=== PATIENT | female | born 1960 | race Caucasian/White ===

== ENCOUNTER 2016-10-16 10:09 | Inpatient (IN) | payer OTHER ==
[2016-10-15 14:19] VITALS: BMI 34.5
[~2016-10-16] VITALS: Ht 170.2 cm; Wt 101.0 kg
[2016-10-16] VITALS (17 sets, daily range): BP systolic 114–166; BP diastolic 62–112; PULSE 75–88; RESP 11–25; Ht 170.2 cm; Wt 101.0 kg
[2016-10-16] MEDS: CEFAZOLIN 1 GM/50 ML (PMX) 50 ML IVPB SCH (01:00)
[~2016-10-16 10:09] MED LIST: CEFAZOLIN 1 GM INJ ONE
[2016-10-16] MEDS: D5-NS + KCL 20 MEQ 1,000 ML IV SCH ×2 (10:30→20:30)
[2016-10-16] MEDS ORDERED: CEFAZOLIN 2 GM/50 ML (PMX) 50 ML IVPB SCH (10:30)
[2016-10-16] MEDS ORDERED: Metronidazole 500 MG in NS 100 ML IVPB ONE (10:30)
[2016-10-16] MEDS ORDERED: VASOPRESSIN 20 UNITS INJ ONE (11:15)
[2016-10-16] MEDS ORDERED: THROMBIN 5000 UNIT VIAL ONE ×2 (11:15→17:52)
[2016-10-16] MEDS ORDERED: METHYLENE BLUE 1% 10 ML INJ ONE (11:16)
[2016-10-16] MEDS ORDERED: ATEN50TA PO (11:49)
[2016-10-16] MEDS ORDERED: MTF1000T PO (11:49)
[2016-10-16] MEDS ORDERED: GLIP-95 PO (11:51)
[2016-10-16] MEDS ORDERED: FENTAnyl 50 MCG/ML VIAL ONE ×2 (13:24→15:38)
[2016-10-16] MEDS ORDERED: MIDAZOLAM 1 MG/ML 2 ML INJ ONE (13:24)
[2016-10-16] MEDS ORDERED: ROCURONIUM 50 MG INJ ONE (13:24)
[2016-10-16] MEDS ORDERED: PROPOFOL 20 ML ONE (13:24)
[2016-10-16] MEDS ORDERED: LIDOCAINE 1% (MDV) 20 ML INJ ONE (13:24)
--- NOTE | 2016-10-16 13:30 | HPN ---
Date/Time of Note Date/Time of Note DATE: 10/16/16 TIME: 13:30 Interval H&P Admission Note Pt. seen H&P reviewed: No system changes CEE BARRERA MD Oct 16, 2016 13:30
[2016-10-16] MEDS ORDERED: METOCLOPRAMIDE 10 MG INJ ONE (14:33)
[2016-10-16] MEDS ORDERED: FAMOTIDINE 20 MG INJ ONE (14:33)
[2016-10-16] MEDS ORDERED: ONDANSETRON 4 MG INJ ONE (14:33)
[2016-10-16] MEDS ORDERED: CEFAZOLIN 1 GM in SOD CHLORIDE 0.9% 100 ML IVPB SCH (15:00)
[2016-10-16] MEDS ORDERED: ROPIVACAINE 0.2% 20 ML VIAL ONE ×3 (15:31→18:35)
[2016-10-16] MEDS ORDERED: LABETALOL HCL 20MG INJ ONE (15:48)
[2016-10-16] MEDS ORDERED: morphine SULFATE/PF (10 MG/10 ML) INJ ONE (18:05)
[2016-10-16] MEDS ORDERED: SUGAMMADEX SODIUM 200 MG/2 ML VIAL IV ONE (18:24)
--- NOTE | 2016-10-16 18:44 | OPR ---
Date/Time of Note Date/Time of Note DATE: 10/16/16 TIME: 18:43 Operative Report Free Text/Dictation 1 OPERATIVE REPORT [facility] Name: Ruth Corley Date: 10/16/16 Preoperative Diagnosis: 1-Endometrial cancer grade 2-3 Postoperative Diagnosis: 1-Endometrial cancer with final pathology pending 2- Ureteral stricture/ IP-ligament hypervascularity Procedures: 1- Total laparoscopic hysterectomy with bilateral salpingoophorectomy 2- Bilateral ureteral dissection with repositioning 3- Laparoscopic pelvic and aortic lymph node dissection 4- Retroperitoneal uterine artery ligation adjacent to hypogastric artery Surgeon: Dr. Aguilar Flat Optical Element Maker: Dr. Herrera Anaesthesia: General with regional Indications for Procedure: This 56 year old patient had a grade 2-3 endometrial cancer without evidence of metastatic disease preoperatively and after discussions of options with risks and benefits it was determined that a laparoscopic hysterectomy with bilateral salpingoophorectomy and pelvic/aortic lymph node dissection would be completed for the purposes of treatment and possibly planning additional adjuvant therapy. The pelvic and LND was performed in lieu of final grading not being equivalent to preoperative D&C grade 18-25% of the time and frozen section not being more that 80% reliable in determining grade and depth of invasion; therefore complete staging is performed to determine postoperative management unless there is a significant contraindication. Name: Ruth Corley Intraoperative Findings and Summary of Procedure: After placing the Trocars and exploration we noted an enlarged globular uterus with hypervascularity with significant adhesions of the adnexia to the sidewalls. The TLH/BSO was then performed without incident but required a ureteral dissection due to anatomic issues of the adnexia adherent to the sidewalls and uterine enlargement due to possible invasion and hypervascularity with retroperitoneal uterine artery ligation adjacent to hypogastric artery for required hemostasis, with the laparoscopic LND being subsequently performed with a finding of grossly negative nodes pathology pending. The patient will stay a minimum of one night to observe for recovery of from anesthesia and confirm stable hemoglobin and hematocrit with the necessity of confirmation of some GI recovery and probably need an addition night as well. Findings and Procedure: After being prepped and draped in the usual manner an EEA sizer and pneumo- occluder was inserted vaginally. A 5-millimeter trocar was then placed cephlad to the umbilicus without incident. Subsequently, we insufflated and placed two 12- millimeter trocars laterally and a 12-millimeter trocar suprapubically, as well as an additional 12-mm trocar further cephlad to the umbilicus. At this time multiple pelvic adhesions were lysed with sharp dissection and the Omni if not adjacent to serosa. Subsequently we explored and noted an enlarged globular uterus with hypervascularity with adnexia adherent to the sidewalls due to apparent inflammation and old scar tissue. Initially the right round ligament was cauterized and transected with the Thunderbeat and the retroperitoneal space further opened parallel to the IP ligament an laterally with the same devise. The right ureter was identified and due to the aforementioned distortion from adherent adnexia was dissected laterally with the Omni and the endo-dissector. After lateralizing the ureter the uterine artery was identified and clipped adjacent to the hypogastric artery due to the uterine enlargement and hypervascularity lateral to the ureter. Hence, a space was developed the broad ligament and the right IP ligament [facility]er[facility] and transected with a Thunderbeat after which the uterus was retracted medially and the bladder flap was partly developed with the Gyrus bipolar cutting forceps and the Omni. We then used a 10-mm ratcheted endo- grasper, placed through the 12-mm suprapubic trocar to manipulate the uterus and with the EEA sizer uterus was retracted and left round ligament was cauterized and transected with the Thunderbeat and the retroperitoneal space further opened parallel to the IP ligament an laterally with the same devise. The left ureter was identified and due to the aforementioned distortion was dissected laterally with the Omni and the endo-dissector as done contralaterally. After lateralizing the ureter the uterine artery was identified and clipped adjacent to the hypogastric artery due to the uterine enlargement and hypervascularity lateral to the ureter. Hence, a space was developed in the broad ligament and the left IP ligament was cauterized and transected with a Thunderbeat after which the uterus was retracted medially, allowing development or the bladder flap uneventfully with a Thunderbeat and blunt dissection. Subsequently, the right uterine artery was transected with a Thunderbeat perpendicular to the distal lower uterine segment and the Cardinal ligament and utero-sacral ligament were both transected with an Omni and Thunderbeat parallel to the lower uterine segment and cervix. An identical series of steps were taken on the left side. The anterior and posterior colpotomies were accomplished with a Thunderbeat anteriorly and posteriorly, and continued around the sides as the specimen was removed through the vagina uneventfully. The vagina was closed with interrupted 0 Vicryl suture and continuous 2-0 v-lock suture. At this time the frozen section returned grade uncertain with uncertain depth of invasion and the pelvic and aortic LND were completed after confirming hemostasis. Initially a fan retractor was used for exposure and secured to the Lacho arm and all lymph node tissue adjacent to the right external iliac artery and vein, hypogastric artery and vein, as well as obturator fossa were removed with sharp and blunt dissection, using the Thunderbeat or Gyrus bipolar Omni for hemostasis and lymphostasis. The abelardo tissue was grasped and subsequently placed under tractions with the Omni and the Thunderbeat then being used for the hemostasis and lymphostasis in the process of [facility]. The dissection was continued to include abelardo tissue adjacent to the common iliac vessels. The obturator nerve was identified and all adjacent abelardo tissue removed with blunt dissection, with the Thunderbeat or Gyrus bipolar Omni used for lymphostasis and hemostasis as needed. The fan retractors were adjusted in that a suprapubically placed fan retracted the broad ligament and ureter with ileum while the right lateral trocar was used for a fan to retract the cecum and ascending colon allowing any abelardo tissue adjacent to the vena cava, as well as aorto-caval nodes to be removed using identical technique. [employer] Sales [employer] vessels were addressed with the Thunderbeat or Gyrus bipolar Omni. At this time we placed the fan retractors for contralateral exposure. Subsequently, all lymph node tissue adjacent to the left external iliac artery and vein, hypogastric artery and vein, as well as obturator fossa were removed with sharp and blunt dissection, the Thunderbeat or Gyrus bipolar Omni for hemostasis and lymphostasis, with a technique identical to the right side. The dissection was continued to include abelardo tissue adjacent to the common iliac vessels. Subsequently, the fan retractors were adjusted and any abelardo tissue adjacent to the aorta were dissected using similar technique. After irrigating and assuring hemostasis the 12 millimeter trocars were removed and the fascia was closed with 0-vicryl using an endo- close devise. The gas was removed and the skin of all sites then closed with subcutaneous 3-0 Vicryl suture and interrupted 6-0 Monocryl suture. The EBL was 100cc and the patient tolerated the procedure well and left the OR in good condition. Jose Aguilar M.D. JOSE AGUILAR MD Oct 16, 2016 18:44
[2016-10-16] MEDS ORDERED: HYDROmorphONE (0.2 MG/ML) 10ML SYG IV ONE (18:48)
[2016-10-16] MEDS ORDERED: LABETALOL HCL 20MG INJ IV PRN (19:00)
[2016-10-16] MEDS ORDERED: METOCLOPRAMIDE 10 MG INJ IV PRN (19:00)
[2016-10-16] MEDS ORDERED: DIPHENHYDRAMINE 50 MG INJ IV PRN (19:00)
[2016-10-16] MEDS ORDERED: NALOXONE (0.4 MG/ML) INJ IV PRN (19:00)
[2016-10-16] MEDS ORDERED: ONDANSETRON 4 MG INJ IV PRN ×2 (19:00)
[2016-10-16] MEDS ORDERED: HYDROmorphONE 1 MG/ML SYG IV PRN ×2 (19:00)
[2016-10-16] MEDS ORDERED: MEPERIDINE 25 MG INJ IV PRN (19:00)
[2016-10-16] MEDS ORDERED: hydrALAzine 20 MG INJ IV PRN (19:00)
[2016-10-16] MEDS ORDERED: PROCHLORPERAZINE 10 MG INJ IV PRN (19:00)
[2016-10-16] MEDS ORDERED: NALBUPHINE HCL (10 MG/1 ML) INJ IV PRN (19:00)
[2016-10-16] MEDS: ONDANSETRON 4 MG INJ IV PRN (19:10)
[2016-10-16] MEDS: HYDROmorphONE (0.2 MG/ML) 10ML SYG IV PRN ×4 (19:10→19:52)
[2016-10-16] MEDS ORDERED: GLUCAGON 1 MG INJ IM PRN ×2 (19:30→20:00)
[2016-10-16] MEDS ORDERED: GLUCOSE GEL 15 GRAM TUBE PO PRN ×4 (19:30→20:00)
[2016-10-16] MEDS ORDERED: GLUCOSE GEL 15 GRAM TUBE BUCCAL PRN ×2 (19:30→20:00)
[2016-10-16] MEDS ORDERED: DEXTROSE 50% 50 ML SYRINGE IV PRN ×4 (19:30→20:00)
[2016-10-16] MEDS: metFORMIN 500 MG TAB PO SCH (21:00)
[2016-10-16] MEDS: morphine 2 MG INJ IV PRN (21:03)
[2016-10-16] MEDS: FAMOTIDINE 20 MG INJ IV SCH (21:50)
--- NOTE | 2016-10-16 21:56 | HP ---
DATE OF ADMISSION: 10/16/2016 HISTORY OF PRESENT ILLNESS: The patient is a 56-year-old, White female, with a grade 2-3 endometrial cancer without evidence of metastatic disease. The patient also with history of diabetes mellitus, hypertension, and obesity. The patient was evaluated by Dr. Aguilar, at the patient was brought to the hospital and underwent a total laparoscopic hysterectomy with bilateral salpingo-oophorectomy, bilateral urethral dissection with repositioning, laparoscopic pelvic and aortic lymph node dissection, and retroperitoneal uterine artery ligation adjacent to the hypogastric artery. Postoperatively the patient experienced significant pain and patient is admitted for further evaluation and management. PAST MEDICAL HISTORY: Positive for obesity, diabetes and hypertension. PAST SURGICAL HISTORY: Status post appendectomy and status post cholecystectomy. FAMILY HISTORY: Positive for ovarian cancer in patient's mother at the age at the age of 48. SOCIAL HISTORY: Patient lives at home with her family. Patient denies any tobacco use. The patient denies any illicit drug use. Patient uses alcohol occasionally and very rarely. ALLERGIES: NO KNOWN ALLERGIES. MEDICATIONS: Atenolol and metformin. REVIEW OF SYSTEMS: Twelve point review of systems is negative unless what is mentioned in HPI. PHYSICAL EXAMINATION: GENERAL: Well developed, obese female. Currently is awake, alert. VITAL SIGNS: Temperature is 97.8, pulse is 84, blood pressure 140/81, respiratory rate 16, oxygen saturation 98 percent on 2 L nasal cannula. HEENT: Head is atraumatic, normocephalic. Pupils equal, round, reactive to light and accommodation. Oral mucosa is pink and moist. NECK: Supple. No cervical lymphadenopathy. No thyromegaly. CHEST: Lungs clear bilaterally. There is no rhonchi, wheezes, or rales noted. CARDIOVASCULAR: Normal S1, S2. No murmurs, gallops, clicks, or rubs noted. ABDOMEN: Round, soft, status post surgery. GENITOURINARY: Patient has a Ellison catheter with yellow urine. EXTREMITIES: No edema, clubbing, or cyanosis. SKIN: Patient has skin discoloration over the face and upper extremities consistent with vitiligo. NEUROLOGICAL: Patient is awake, alert, and oriented times 3. No focal deficits noted. Motor strength, 5/5 in all extremities. LABORATORY DATA: Prior to surgery, white blood cells 8.8, hemoglobin 15, hematocrit 45, and platelets 212. Current BMP, sodium 141, potassium 4.4, BUN is 10, creatinine 0.49, chloride 106, carbon dioxide 23, and calcium 9.5. Chest x-ray prior to surgery, heart is normal. Slight calcification aorta. The lungs and costophrenic angles are clear. Degenerative changes are noted in the spine without bridging osteophytes. Upper abdominal surgical clips are present. ASSESSMENT AND PLAN: 1. Endometrial cancer, status post total laparoscopic hysterectomy with bilateral salpingo-oophorectomy, bilateral ureteral dissection was repositioning. Continue morphine for pain and Zofran p.r.n. for nausea. Continue IV fluids. Advance diet per Surgery. Continue Ellison catheter and monitor urinary output. 2. Diabetes mellitus type 2. Continue metformin. We will monitor fingerstick, NovoLog, and sliding scale coverage, and adequate glycemic control. 3. Hypertension. We will resume patient's home antihypertensive medication. 4. Continue sequential compression devices for deep venous thrombosis prophylaxis and Pepcid for peptic ulcer disease prophylaxis. 5. Further recommendations based on clinical course. Plan of care discussed with Dr. Nelson. Dictated By: Melody Zayas NP /siva/jr /Document#: [id number]
[2016-10-16] MEDS: KETOROLAC 30 MG INJ IV PRN (22:08)
[2016-10-17] MEDS: POTASSIUM CHLORIDE 20 MEQ in LACTATED RINGER'S 1,000 ML IV SCH ×3 (00:04→14:24)
[2016-10-17] MEDS: metroNIDAZOLE 500 MG/NS (PMX) 100 ML IVPB SCH ×2 (00:04→08:12)
[2016-10-17] MEDS: INSULIN ASPART [NOVOLOG] 3 ML PEN SC SCH ×5 (00:11→21:00)
[2016-10-17] MEDS: CEFAZOLIN 1 GM/50 ML (PMX) 50 ML IVPB SCH ×2 (01:00→08:56)
[2016-10-17] MEDS: ACCU-CHEK XX SCH (02:00)
[2016-10-17] MEDS: morphine 2 MG INJ IV PRN (02:19)
[2016-10-17 05:30] LABS: INR 1.13; PROTIME 14.5 Sec (12.2-14.2); PT RATIO 1.1
[2016-10-17 07:00] VITALS: BP 127/71; RESP 20
[2016-10-17 07:36] LABS: BASOPHILS % 0.1 % (0.0-2.0); HEMATOCRIT 34.7 % (37.0-47.0); HEMOGLOBIN 12.4 g/dl (12.0-16.0); LYMPHOCYTES # 1.4 10^3/ul (0.8-2.9); LYMPHOCYTES % 13.9 % (15.0-51.0); MEAN CORPUSCULAR HEMOGLOBIN 28.6 pg (29.0-33.0); MEAN CORPUSCULAR HGB CONC 35.7 g/dl (32.0-37.0); MEAN CORPUSCULAR VOLUME 80.1 fl (82.0-101.0); MONOCYTE # 1.3 10^3/ul (0.3-0.9); MONOCYTES % 12.2 % (0.0-11.0); NEUTROPHILS % 73.5 % (39.0-77.0); PLATELET COUNT 203 10^3/UL (140-415); RED BLOOD COUNT 4.33 10^6/ul (4.20-5.40); RED CELL DISTRIBUTION WIDTH 12.9 % (11.5-14.5); WHITE BLOOD COUNT 10.3 10^3/ul (4.8-10.8)
[2016-10-17 08:41] LABS: CALCIUM 8.7 mg/dl (8.4-10.2); CREATININE 0.53 mg/dl (0.44-1.00); POTASSIUM 4.5 mmol/L (3.5-5.1)
[2016-10-17] MEDS: metFORMIN 500 MG TAB PO SCH ×2 (08:56→21:00)
[2016-10-17] MEDS: FAMOTIDINE 20 MG INJ IV SCH (08:56)
[2016-10-17] MEDS: ATENOLOL 50 MG TAB PO SCH (08:57)
--- NOTE | 2016-10-17 10:00 | PN ---
Date/Time of Note Date/Time of Note DATE: 10/17/16 TIME: 09:59 Assessment/Plan VTE Prophylaxis VTE Prophylaxis Intervention: other Lines/Catheters IV Catheter Type (from Nrsg): Saline Lock Urinary Cath still in place: Yes Reason Cath still needed: skin wounds contaminated by urine Assessment/Plan Chief Complaint/Hosp Course 1. Endometrial cancer, status post total laparoscopic hysterectomy with bilateral salpingo-oophorectomy, bilateral ureteral dissection was repositioning. Continue morphine for pain and Zofran p.r.n. for nausea. Continue IV fluids. Advance diet per Surgery. Continue Ellison catheter and monitor urinary output. 2. Diabetes mellitus type 2. Continue metformin. We will monitor fingerstick, NovoLog, and sliding scale coverage, and adequate glycemic control. 3. Hypertension. We will resume patient's home antihypertensive medication. 4. Continue sequential compression devices for deep venous thrombosis prophylaxis and Pepcid for peptic ulcer disease prophylaxis. Problems: Subjective 24 Hr Interval Summary Free Text/Dictation Patient doing well Exam/Review of Systems Vital Signs Vitals Vital Signs Date Time Temp Pulse Resp B/P Pulse Ox O2 Delivery O2 Flow Rate FiO2 10/17/16 07:00 98.5 77 20 127/71 97 10/16/16 21:30 Nasal Cannula 2.0 Intake and Output 10/16/16 10/16/16 10/17/16 15:00 23:00 07:00 Intake Total 3240 ml 1000 ml Output Total 790 ml 1200 ml Balance 2450 ml -200 ml Exam Constitutional: well developed Head: atraumatic, normocephalic Neck: supple Respiratory: clear to auscultation Cardiovascular: regular rate and rhythm Gastrointestinal: non-tender, soft Extremities: normal pulses Results Result Diagram: 10/17/16 0433 10/17/16 0433 Results 24 hrs Laboratory Tests Test 10/16/16 12:01 10/16/16 21:51 10/17/16 00:02 10/17/16 04:33 Bedside Glucose 169 222 H 233 H White Blood Count 10.3 Red Blood Count 4.33 Hemoglobin 12.4 Hematocrit 34.7 L Mean Corpuscular Volume 80.1 L Mean Corpuscular Hemoglobin 28.6 L Mean Corpuscular Hemoglobin Concent 35.7 Red Cell Distribution Width 12.9 Platelet Count 203 Mean Platelet Volume 11.0 H Neutrophils % 73.5 Lymphocytes % 13.9 L Monocytes % 12.2 H Eosinophils % 0.0 Basophils % 0.1 Nucleated Red Blood Cells % 0.0 Neutrophils # (Manual) 8 H Lymphocytes # 1.4 Monocytes # 1.3 H Eosinophils # 0.0 Basophils # 0.0 Nucleated Red Blood Cells # 0.0 Prothrombin Time 14.5 H Prothrombin Time Ratio 1.1 INR International Normalized Ratio 1.13 Sodium Level 143 Potassium Level 4.5 Chloride Level 104 Carbon Dioxide Level 27 Anion Gap 17 H Blood Urea Nitrogen 13 Creatinine 0.53 Glucose Level 193 Hemoglobin A1c 8.6 H Calcium Level 8.7 Test 10/17/16 04:51 10/17/16 08:37 Bedside Glucose 230 H 208 Medications Medications Current Medications Metronidazole (Flagyl 500 Mg (Pmx)) 100 ml @ 100 mls/hr Q8H IVPB Last administered on 10/17/16 08:12; Admin Dose 100 MLS/HR; Start 10/16/16 at 15:00 ; Stop 10/17/16 at 14:59 Morphine Sulfate (morphine) 2 mg Q2H PRN IV PAIN LEVEL 6-10 Last administered on 10/17/16 02:19; Admin Dose 2 MG; Start 10/16/16 at 15:00 Acetaminophen/ Hydrocodone Bitart ([place] (5/325)) 1 tab Q6H PRN PO PAIN LEVEL 6 -10; Start 10/16/16 at 15:00 Ondansetron HCl (Zofran Inj) 4 mg Q6H PRN IV NAUSEA AND/OR VOMITING Last administered on 10/16/16 19:10; Admin Dose 4 MG; Start 10/16/16 at 15:00 Famotidine 20 mg 20 mg Q12 IV Last administered on 10/17/16 08:56; Admin Dose 20 MG; Start 10/16/16 at 21:00 Potassium Chloride/Lactated Ringer's (KCl/Lr) 1,010 ml @ 100 mls/hr Q10H6M IV Last administered on 10/17/16 00:04; Admin Dose 100 MLS/HR; Start 10/16/16 at 14:32 Naloxone HCl (Narcan) 0.1 mg Q2M PRN IV FOR RESP RATE 8 OR LESS; Start at 19:00; Stop 10/17/16 at 18:59 Ketorolac Tromethamine (Toradol) 30 mg Q6H PRN IV PAIN Last administered on 22:08; Admin Dose 30 MG; Start 10/16/16 at 19:00; Stop 10/17/16 at 18:59 Hydromorphone HCl (Dilaudid) 0.2 mg Q3H PRN IV PAIN LEVEL 1-5; Start 10/16/16 at 19:00; Stop 10/17/16 at 18:59 Hydromorphone HCl (Dilaudid) 0.4 mg Q3H PRN IV PAIN LEVEL 6-10; Start 10/16/16 at 19:00; Stop 10/17/16 at 18:59 Nalbuphine HCl (Nubain) 5 mg ONCE PRN IV ITCHING; Start 10/16/16 at 19:00; Stop 10/17/16 at 18:59 Ondansetron HCl (Zofran Inj) 4 mg Q6H PRN IV NAUSEA AND/OR VOMITING Last administered on 10/17/16 00:03; Admin Dose 4 MG; Start 10/16/16 at 19:00; Stop 10/17/16 at 18:59 Atenolol (Tenormin) 50 mg DAILY PO Last administered on 10/17/16 08:57; Admin Dose 50 MG; Start 10/17/16 at 09:00 Metformin HCl (Glucophage) 1,000 mg BID PO Last administered on 10/17/16 08:56 ; Admin Dose 1,000 MG; Start 10/16/16 at 21:00 Miscellaneous Information 1 ea NOTE XX ; Start 10/16/16 at 19:30 Glucose (Glutose) 15 gm Q15M PRN PO DECREASED GLUCOSE; Start 10/16/16 at 19:30 Glucose (Glutose) 22.5 gm Q15M PRN PO DECREASED GLUCOSE; Start 10/16/16 at 19: 30 Dextrose (D50w Syringe) 25 ml Q15M PRN IV DECREASED GLUCOSE; Start 10/16/16 at 19:30 Dextrose (D50w Syringe) 50 ml Q15M PRN IV DECREASED GLUCOSE; Start 10/16/16 at 19:30 Glucagon (Glucagen) 1 mg Q15M PRN IM DECREASED GLUCOSE; Start 10/16/16 at 19:30 Glucose (Glutose) 15 gm Q15M PRN BUCCAL DECREASED GLUCOSE; Start 10/16/16 at 19 :30 Diagnostic Test (Pha) (Accu-Chek) 1 ea 02 XX ; Start 10/17/16 at 02:00 Miscellaneous Information 1 ea NOTE XX ; Start 10/16/16 at 20:00 Glucose (Glutose) 15 gm Q15M PRN PO DECREASED GLUCOSE; Start 10/16/16 at 20:00 Glucose (Glutose) 22.5 gm Q15M PRN PO DECREASED GLUCOSE; Start 10/16/16 at 20: 00 Dextrose (D50w Syringe) 25 ml Q15M PRN IV DECREASED GLUCOSE; Start 10/16/16 at 20:00 Dextrose (D50w Syringe) 50 ml Q15M PRN IV DECREASED GLUCOSE; Start 10/16/16 at 20:00 Glucagon (Glucagen) 1 mg Q15M PRN IM DECREASED GLUCOSE; Start 10/16/16 at 20:00 Glucose (Glutose) 15 gm Q15M PRN BUCCAL DECREASED GLUCOSE; Start 10/16/16 at 20 :00 CARSON VILLALPANDO Oct 17, 2016 10:00
[2016-10-17] MEDS: ACETAMINOPHEN 325 MG TAB PO PRN ×2 (11:54→18:04)
[2016-10-17 12:00] VITALS: BP 150/68; PULSE 68; RESP 18
[2016-10-17 14:00] VITALS: BP 135/69; RESP 20
--- NOTE | 2016-10-17 14:48 | PN ---
Date/Time of Note Date/Time of Note DATE: 10/17/16 TIME: 14:45 Assessment/Plan VTE Prophylaxis VTE Prophylaxis Intervention: SCD's Lines/Catheters IV Catheter Type (from Nrs): Saline Lock Urinary Cath still in place: Yes Reason Cath still needed: urinary retention Assessment/Plan Chief Complaint/Hosp Course endometrial cancer Problems: Assessment/Plan A- doing well other than N/V P- d/c MS and add Toradol Subjective 24 Hr Interval Summary Free Text/Dictation + flatus, minimally OOB and N/V apparently correlated with MS. Exam/Review of Systems Vital Signs Vitals Vital Signs Date Time Temp Pulse Resp B/P Pulse Ox O2 Delivery O2 Flow Rate FiO2 10/17/16 14:00 98.7 86 20 135/69 95 10/17/16 12:00 Nasal Cannula 2.0 Intake and Output 10/16/16 10/16/16 10/17/16 15:00 23:00 07:00 Intake Total 3240 ml 1000 ml Output Total 790 ml 1200 ml Balance 2450 ml -200 ml Exam Resp- clear CVS- NSR Abd- soft NT and clean Ext- nt no edema Results Result Diagram: 10/17/16 0433 10/17/16 0433 Results 24 hrs Laboratory Tests Test 10/16/16 21:51 10/17/16 00:02 10/17/16 04:33 10/17/16 04:51 Bedside Glucose 222 H 233 H 230 H White Blood Count 10.3 Red Blood Count 4.33 Hemoglobin 12.4 Hematocrit 34.7 L Mean Corpuscular Volume 80.1 L Mean Corpuscular Hemoglobin 28.6 L Mean Corpuscular Hemoglobin Concent 35.7 Red Cell Distribution Width 12.9 Platelet Count 203 Mean Platelet Volume 11.0 H Neutrophils % 73.5 Lymphocytes % 13.9 L Monocytes % 12.2 H Eosinophils % 0.0 Basophils % 0.1 Nucleated Red Blood Cells % 0.0 Neutrophils # (Manual) 8 H Lymphocytes # 1.4 Monocytes # 1.3 H Eosinophils # 0.0 Basophils # 0.0 Nucleated Red Blood Cells # 0.0 Prothrombin Time 14.5 H Prothrombin Time Ratio 1.1 INR International Normalized Ratio 1.13 Sodium Level 143 Potassium Level 4.5 Chloride Level 104 Carbon Dioxide Level 27 Anion Gap 17 H Blood Urea Nitrogen 13 Creatinine 0.53 Glucose Level 193 Hemoglobin A1c 8.6 H Calcium Level 8.7 Test 10/17/16 08:37 10/17/16 11:59 Bedside Glucose 208 177 Medications Medications Current Medications Metronidazole (Flagyl 500 Mg (Pmx)) 100 ml @ 100 mls/hr Q8H IVPB Last administered on 10/17/16 08:12; Admin Dose 100 MLS/HR; Start 10/16/16 at 15:00 ; Stop 10/17/16 at 14:59 Morphine Sulfate (morphine) 2 mg Q2H PRN IV PAIN LEVEL 6-10 Last administered on 10/17/16 02:19; Admin Dose 2 MG; Start 10/16/16 at 15:00 Acetaminophen/ Hydrocodone Bitart ([place] (5/325)) 1 tab Q6H PRN PO PAIN LEVEL 6 -10; Start 10/16/16 at 15:00 Ondansetron HCl 4 mg 4 mg Q6H PRN IV NAUSEA AND/OR VOMITING Last administered on 10/16/16 19:10; Admin Dose 4 MG; Start 10/16/16 at 15:00 Potassium Chloride/Lactated Ringer's (KCl/Lr) 1,010 ml @ 100 mls/hr Q10H6M IV Last administered on 10/17/16 14:24; Admin Dose 100 MLS/HR; Start 10/16/16 at 14:32 Naloxone HCl (Narcan) 0.1 mg Q2M PRN IV FOR RESP RATE 8 OR LESS; Start at 19:00; Stop 10/17/16 at 18:59 Ketorolac Tromethamine (Toradol) 30 mg Q6H PRN IV PAIN Last administered on 22:08; Admin Dose 30 MG; Start 10/16/16 at 19:00; Stop 10/17/16 at 18:59 Hydromorphone HCl (Dilaudid) 0.2 mg Q3H PRN IV PAIN LEVEL 1-5; Start 10/16/16 at 19:00; Stop 10/17/16 at 18:59 Hydromorphone HCl (Dilaudid) 0.4 mg Q3H PRN IV PAIN LEVEL 6-10; Start 10/16/16 at 19:00; Stop 10/17/16 at 18:59 Nalbuphine HCl (Nubain) 5 mg ONCE PRN IV ITCHING; Start 10/16/16 at 19:00; Stop 10/17/16 at 18:59 Ondansetron HCl (Zofran Inj) 4 mg Q6H PRN IV NAUSEA AND/OR VOMITING Last administered on 10/17/16 00:03; Admin Dose 4 MG; Start 10/16/16 at 19:00; Stop 10/17/16 at 18:59 Atenolol (Tenormin) 50 mg DAILY PO Last administered on 10/17/16 08:57; Admin Dose 50 MG; Start 10/17/16 at 09:00 Metformin HCl (Glucophage) 1,000 mg BID PO Last administered on 10/17/16 08:56 ; Admin Dose 1,000 MG; Start 10/16/16 at 21:00 Miscellaneous Information 1 ea NOTE XX ; Start 10/16/16 at 19:30 Glucose (Glutose) 15 gm Q15M PRN PO DECREASED GLUCOSE; Start 10/16/16 at 19:30 Glucose (Glutose) 22.5 gm Q15M PRN PO DECREASED GLUCOSE; Start 10/16/16 at 19: 30 Dextrose (D50w Syringe) 25 ml Q15M PRN IV DECREASED GLUCOSE; Start 10/16/16 at 19:30 Dextrose (D50w Syringe) 50 ml Q15M PRN IV DECREASED GLUCOSE; Start 10/16/16 at 19:30 Glucagon (Glucagen) 1 mg Q15M PRN IM DECREASED GLUCOSE; Start 10/16/16 at 19:30 Glucose (Glutose) 15 gm Q15M PRN BUCCAL DECREASED GLUCOSE; Start 10/16/16 at 19 :30 Diagnostic Test (Pha) (Accu-Chek) 1 ea 02 XX ; Start 10/17/16 at 02:00 Miscellaneous Information 1 ea NOTE XX ; Start 10/16/16 at 20:00 Glucose (Glutose) 15 gm Q15M PRN PO DECREASED GLUCOSE; Start 10/16/16 at 20:00 Glucose (Glutose) 22.5 gm Q15M PRN PO DECREASED GLUCOSE; Start 10/16/16 at 20: 00 Dextrose (D50w Syringe) 25 ml Q15M PRN IV DECREASED GLUCOSE; Start 10/16/16 at 20:00 Dextrose (D50w Syringe) 50 ml Q15M PRN IV DECREASED GLUCOSE; Start 10/16/16 at 20:00 Glucagon (Glucagen) 1 mg Q15M PRN IM DECREASED GLUCOSE; Start 10/16/16 at 20:00 Glucose (Glutose) 15 gm Q15M PRN BUCCAL DECREASED GLUCOSE; Start 10/16/16 at 20 :00 Acetaminophen (Tylenol Tab) 650 mg Q6H PRN PO PAIN AND OR ELEVATED TEMP Last administered on 10/17/16t 11:54; Admin Dose 650 MG; Start 10/17/16 at 11:30 Famotidine (Pepcid) 20 mg Q12 PO ; Start 10/17/16 at 21:00 CEE BARRERA MD Oct 17, 2016 14:48
[2016-10-17] MEDS: KETOROLAC 30 MG INJ IV PRN ×2 (15:44→21:55)
[2016-10-17 19:46] VITALS: BP 131/65; RESP 18
[2016-10-17] MEDS: HYDROCODONE/APAP (5/325) TAB PO PRN (19:51)
[2016-10-17] MEDS: ONDANSETRON 4 MG INJ IV PRN (19:51)
[2016-10-17] MEDS ORDERED: HYDROCODONE/APAP (5/325) TAB PO ONE (20:30)
[2016-10-17] MEDS: FAMOTIDINE 20 MG TAB PO SCH (20:49)
[2016-10-18] MEDS: POTASSIUM CHLORIDE 20 MEQ in LACTATED RINGER'S 1,000 ML IV SCH ×2 (00:48→06:18)
[2016-10-18 01:32] VITALS: BP 128/63; RESP 17
[2016-10-18] MEDS: HYDROCODONE/APAP (5/325) TAB PO PRN ×4 (02:13→20:56)
[2016-10-18] MEDS: ACCU-CHEK XX SCH (03:06)
[2016-10-18] MEDS: KETOROLAC 30 MG INJ IV PRN ×3 (03:55→17:38)
[2016-10-18 05:40] LABS: BILIRUBIN,INDIRECT 0.5 mg/dl (0-1.1); BILIRUBIN,TOTAL 0.5 mg/dl (0.2-1.3); CALCIUM 8.5 mg/dl (8.4-10.2); CREATININE 0.57 mg/dl (0.44-1.00); POTASSIUM 3.8 mmol/L (3.5-5.1)
[2016-10-18] MEDS: INSULIN ASPART [NOVOLOG] 3 ML PEN SC SCH ×4 (07:50→21:01)
[2016-10-18 08:30] VITALS: BP 135/69; RESP 18
[2016-10-18] MEDS: metFORMIN 500 MG TAB PO SCH ×2 (08:49→17:37)
[2016-10-18] MEDS: FAMOTIDINE 20 MG TAB PO SCH ×2 (08:49→20:56)
[2016-10-18] MEDS: ATENOLOL 50 MG TAB PO SCH (08:51)
--- NOTE | 2016-10-18 11:49 | PN ---
Date/Time of Note Date/Time of Note DATE: 10/18/16 TIME: 11:48 Assessment/Plan VTE Prophylaxis VTE Prophylaxis Intervention: other Lines/Catheters IV Catheter Type (from Nrsg): Peripheral IV Urinary Cath still in place: Yes Reason Cath still needed: skin wounds contaminated by urine Assessment/Plan Chief Complaint/Hosp Course 1. Endometrial cancer, status post total laparoscopic hysterectomy with bilateral salpingo-oophorectomy, bilateral ureteral dissection was repositioning. Continue morphine for pain and Zofran p.r.n. for nausea. Continue IV fluids. Advance diet per Surgery. Continue Ellison catheter and monitor urinary output. 2. Diabetes mellitus type 2. Continue metformin. We will monitor fingerstick, NovoLog, and sliding scale coverage, and adequate glycemic control. 3. Hypertension. We will resume patient's home antihypertensive medication. 4. Continue sequential compression devices for deep venous thrombosis prophylaxis and Pepcid for peptic ulcer disease prophylaxis. Problems: Subjective 24 Hr Interval Summary Free Text/Dictation Patient is complaining of abdominal pain and diarrhea Exam/Review of Systems Vital Signs Vitals Vital Signs Date Time Temp Pulse Resp B/P Pulse Ox O2 Delivery O2 Flow Rate FiO2 10/18/16 08:30 98.4 86 18 135/69 95 10/17/16 12:00 Nasal Cannula 2.0 Intake and Output 10/17/16 10/17/16 10/18/16 15:00 23:00 07:00 Intake Total 660 ml 1190 ml 1160 ml Output Total 800 ml 800 ml Balance 660 ml 390 ml 360 ml Exam Constitutional: well developed Head: atraumatic, normocephalic Neck: supple Respiratory: clear to auscultation Cardiovascular: regular rate and rhythm Gastrointestinal: soft, tender Extremities: normal pulses Results Result Diagram: 10/17/16 0433 10/18/16 0431 Results 24 hrs Laboratory Tests Test 10/17/16 11:59 10/17/16 17:57 10/17/16 20:29 10/18/16 04:31 Bedside Glucose 177 142 156 Sodium Level 141 Potassium Level 3.8 Chloride Level 107 Carbon Dioxide Level 28 Anion Gap 10 # Blood Urea Nitrogen 13 Creatinine 0.57 Glucose Level 121 # Calcium Level 8.5 Total Bilirubin 0.5 Direct Bilirubin 0.00 Indirect Bilirubin 0.5 Aspartate Amino Transf (AST/SGOT) 46 Alanine Aminotransferase (ALT/SGPT) 44 Alkaline Phosphatase 75 Total Protein 6.0 L Albumin 3.0 L Globulin 3.00 Albumin/Globulin Ratio 1.00 Test 10/18/16 08:47 Bedside Glucose 158 Medications Medications Current Medications Acetaminophen/ Hydrocodone Bitart ([place] (5/325)) 1 tab Q6H PRN PO PAIN LEVEL 6 -10 Last administered on 10/18/16 08:49; Admin Dose 1 TAB; Start 10/16/16 at 15 :00 Ondansetron HCl 4 mg 4 mg Q6H PRN IV NAUSEA AND/OR VOMITING Last administered on 10/17/16 19:51; Admin Dose 4 MG; Start 10/16/16 at 15:00 Potassium Chloride/Lactated Ringer's (KCl/Lr) 1,010 ml @ 60 mls/hr [id number] IV Last administered on 10/18/16 06:18; Admin Dose 60 MLS/HR; Start 10/16/16 at 14 :32 Atenolol (Tenormin) 50 mg DAILY PO Last administered on 10/18/16 08:51; Admin Dose 50 MG; Start 10/17/16 at 09:00 Miscellaneous Information 1 ea NOTE XX ; Start 10/16/16 at 19:30 Glucose (Glutose) 15 gm Q15M PRN PO DECREASED GLUCOSE; Start 10/16/16 at 19:30 Glucose (Glutose) 22.5 gm Q15M PRN PO DECREASED GLUCOSE; Start 10/16/16 at 19: 30 Dextrose (D50w Syringe) 25 ml Q15M PRN IV DECREASED GLUCOSE; Start 10/16/16 at 19:30 Dextrose (D50w Syringe) 50 ml Q15M PRN IV DECREASED GLUCOSE; Start 10/16/16 at 19:30 Glucagon (Glucagen) 1 mg Q15M PRN IM DECREASED GLUCOSE; Start 10/16/16 at 19:30 Glucose (Glutose) 15 gm Q15M PRN BUCCAL DECREASED GLUCOSE; Start 10/16/16 at 19 :30 Diagnostic Test (Pha) (Accu-Chek) 1 ea 02 XX ; Start 10/17/16 at 02:00 Miscellaneous Information 1 ea NOTE XX ; Start 10/16/16 at 20:00 Glucose (Glutose) 15 gm Q15M PRN PO DECREASED GLUCOSE; Start 10/16/16 at 20:00 Glucose (Glutose) 22.5 gm Q15M PRN PO DECREASED GLUCOSE; Start 10/16/16 at 20: 00 Dextrose (D50w Syringe) 25 ml Q15M PRN IV DECREASED GLUCOSE; Start 10/16/16 at 20:00 Dextrose (D50w Syringe) 50 ml Q15M PRN IV DECREASED GLUCOSE; Start 10/16/16 at 20:00 Glucagon (Glucagen) 1 mg Q15M PRN IM DECREASED GLUCOSE; Start 10/16/16 at 20:00 Glucose (Glutose) 15 gm Q15M PRN BUCCAL DECREASED GLUCOSE; Start 10/16/16 at 20 :00 Acetaminophen (Tylenol Tab) 650 mg Q6H PRN PO PAIN AND OR ELEVATED TEMP Last administered on 10/17/16 18:04; Admin Dose 650 MG; Start 10/17/16 at 11:30 Famotidine (Pepcid) 20 mg Q12 PO Last administered on 10/18/16 08:49; Admin Dose 20 MG; Start 10/17/16 at 21:00 Ketorolac Tromethamine (Toradol) 30 mg Q6H PRN IV PAIN Last administered on 10:31; Admin Dose 30 MG; Start 10/17/16 at 20:30; Stop 10/18/16 at 21:00 CARSON VILLALPANDO Oct 18, 2016 11:49
[2016-10-18 15:00] VITALS: BP 105/60; RESP 18
--- NOTE | 2016-10-18 15:48 | PN ---
Date/Time of Note Date/Time of Note DATE: 10/18/16 TIME: 15:46 Assessment/Plan VTE Prophylaxis VTE Prophylaxis Intervention: SCD's Lines/Catheters IV Catheter Type (from Nrsg): Peripheral IV Urinary Cath still in place: No Assessment/Plan Chief Complaint/Hosp Course endometrial cancer Problems: Subjective 24 Hr Interval Summary Free Text/Dictation no n/v but minimally OOB and some diarrhea. less pain. Exam/Review of Systems Vital Signs Vitals Vital Signs Date Time Temp Pulse Resp B/P Pulse Ox O2 Delivery O2 Flow Rate FiO2 10/18/16 08:30 98.4 86 18 135/69 95 10/17/16 12:00 Nasal Cannula 2.0 Intake and Output 10/17/16 10/17/16 10/18/16 15:00 23:00 07:00 Intake Total 660 ml 1190 ml 1160 ml Output Total 800 ml 800 ml Balance 660 ml 390 ml 360 ml Exam Resp- clear CVS- NSR Abd- soft NT and clean Ext- nt no edema Results Result Diagram: 10/17/16 0433 10/18/16 0431 Results 24 hrs Laboratory Tests Test 10/17/16 17:57 10/17/16 20:29 10/18/16 04:31 10/18/16 08:47 Bedside Glucose 142 156 158 Sodium Level 141 Potassium Level 3.8 Chloride Level 107 Carbon Dioxide Level 28 Anion Gap 10 # Blood Urea Nitrogen 13 Creatinine 0.57 Glucose Level 121 # Calcium Level 8.5 Total Bilirubin 0.5 Direct Bilirubin 0.00 Indirect Bilirubin 0.5 Aspartate Amino Transf (AST/SGOT) 46 Alanine Aminotransferase (ALT/SGPT) 44 Alkaline Phosphatase 75 Total Protein 6.0 L Albumin 3.0 L Globulin 3.00 Albumin/Globulin Ratio 1.00 Test 10/18/16 12:44 Bedside Glucose 219 Medications Medications Current Medications Acetaminophen/ Hydrocodone Bitart ([place] (5/325)) 1 tab Q6H PRN PO PAIN LEVEL 6 -10 Last administered on 10/18/16 14:24; Admin Dose 1 TAB; Start 10/16/16 at 15 :00 Ondansetron HCl 4 mg 4 mg Q6H PRN IV NAUSEA AND/OR VOMITING Last administered on 10/17/16 19:51; Admin Dose 4 MG; Start 10/16/16 at 15:00 Potassium Chloride/Lactated Ringer's (KCl/Lr) 1,010 ml @ 60 mls/hr [id number] IV Last administered on 10/18/16 06:18; Admin Dose 60 MLS/HR; Start 10/16/16 at 14 :32 Atenolol (Tenormin) 50 mg DAILY PO Last administered on 10/18/16 08:51; Admin Dose 50 MG; Start 10/17/16 at 09:00 Miscellaneous Information 1 ea NOTE XX ; Start 10/16/16 at 19:30 Glucose (Glutose) 15 gm Q15M PRN PO DECREASED GLUCOSE; Start 10/16/16 at 19:30 Glucose (Glutose) 22.5 gm Q15M PRN PO DECREASED GLUCOSE; Start 10/16/16 at 19: 30 Dextrose (D50w Syringe) 25 ml Q15M PRN IV DECREASED GLUCOSE; Start 10/16/16 at 19:30 Dextrose (D50w Syringe) 50 ml Q15M PRN IV DECREASED GLUCOSE; Start 10/16/16 at 19:30 Glucagon (Glucagen) 1 mg Q15M PRN IM DECREASED GLUCOSE; Start 10/16/16 at 19:30 Glucose (Glutose) 15 gm Q15M PRN BUCCAL DECREASED GLUCOSE; Start 10/16/16 at 19 :30 Diagnostic Test (Pha) (Accu-Chek) 1 ea 02 XX ; Start 10/17/16 at 02:00 Miscellaneous Information 1 ea NOTE XX ; Start 10/16/16 at 20:00 Glucose (Glutose) 15 gm Q15M PRN PO DECREASED GLUCOSE; Start 10/16/16 at 20:00 Glucose (Glutose) 22.5 gm Q15M PRN PO DECREASED GLUCOSE; Start 10/16/16 at 20: 00 Dextrose (D50w Syringe) 25 ml Q15M PRN IV DECREASED GLUCOSE; Start 10/16/16 at 20:00 Dextrose (D50w Syringe) 50 ml Q15M PRN IV DECREASED GLUCOSE; Start 10/16/16 at 20:00 Glucagon (Glucagen) 1 mg Q15M PRN IM DECREASED GLUCOSE; Start 10/16/16 at 20:00 Glucose (Glutose) 15 gm Q15M PRN BUCCAL DECREASED GLUCOSE; Start 10/16/16 at 20 :00 Acetaminophen (Tylenol Tab) 650 mg Q6H PRN PO PAIN AND OR ELEVATED TEMP Last administered on 10/17/16 18:04; Admin Dose 650 MG; Start 10/17/16 at 11:30 Famotidine (Pepcid) 20 mg Q12 PO Last administered on 10/18/16 08:49; Admin Dose 20 MG; Start 10/17/16 at 21:00 Ketorolac Tromethamine (Toradol) 30 mg Q6H PRN IV PAIN Last administered on 10:31; Admin Dose 30 MG; Start 10/17/16 at 20:30; Stop 10/18/16 at 21:00 CEE BARRERA MD Oct 18, 2016 15:48
[2016-10-18 16:46] LABS: CALCIUM 8.5 mg/dl (8.4-10.2); CREATININE 0.54 mg/dl (0.44-1.00); POTASSIUM 4.1 mmol/L (3.5-5.1)
[2016-10-18 19:05] VITALS: BP 131/66; RESP 18
[2016-10-19] MEDS: POTASSIUM CHLORIDE 20 MEQ in LACTATED RINGER'S 1,000 ML IV SCH (00:31)
[2016-10-19] MEDS: ACETAMINOPHEN 325 MG TAB PO PRN (01:00)
[2016-10-19] MEDS: ACCU-CHEK XX SCH (01:52)
[2016-10-19] MEDS: ONDANSETRON 4 MG INJ IV PRN (02:15)
[2016-10-19] MEDS: HYDROCODONE/APAP (5/325) TAB PO PRN ×3 (04:13→15:34)
[2016-10-19 05:39] LABS: BASOPHIL # 0.1 10^3/ul (0.0-0.1); BASOPHILS % 0.5 % (0.0-2.0); EOSINOPHILS # 0.2 10^3/ul (0.0-0.5); EOSINOPHILS % 2.1 % (0.0-7.0); HEMATOCRIT 32.6 % (37.0-47.0); HEMOGLOBIN 11.7 g/dl (12.0-16.0); LYMPHOCYTES # 4.5 10^3/ul (0.8-2.9); MEAN CORPUSCULAR HEMOGLOBIN 28.9 pg (29.0-33.0); MEAN CORPUSCULAR HGB CONC 35.9 g/dl (32.0-37.0); MEAN CORPUSCULAR VOLUME 80.5 fl (82.0-101.0); MEAN PLATELET VOLUME 10.8 fl (7.4-10.4); MONOCYTE # 1.1 10^3/ul (0.3-0.9); MONOCYTES % 10.6 % (0.0-11.0); NEUTROPHILS % 44.5 % (39.0-77.0); PLATELET COUNT 189 10^3/UL (140-415); RED BLOOD COUNT 4.05 10^6/ul (4.20-5.40); RED CELL DISTRIBUTION WIDTH 12.7 % (11.5-14.5); WHITE BLOOD COUNT 10.7 10^3/ul (4.8-10.8)
[2016-10-19 06:20] LABS: ALBUMIN 3.1 g/dl (3.3-4.9); ALBUMIN/GLOBULIN RATIO 1.03; BILIRUBIN,INDIRECT 0.3 mg/dl (0-1.1); BILIRUBIN,TOTAL 0.3 mg/dl (0.2-1.3); CALCIUM 8.6 mg/dl (8.4-10.2); CREATININE 0.48 mg/dl (0.44-1.00); TOTAL PROTEIN 6.1 g/dl (6.1-8.1)
[2016-10-19 07:24] VITALS: BP 140/72; RESP 20
[2016-10-19] MEDS: FAMOTIDINE 20 MG TAB PO SCH (09:27)
[2016-10-19] MEDS: metFORMIN 500 MG TAB PO SCH (09:27)
[2016-10-19] MEDS: ATENOLOL 50 MG TAB PO SCH (09:28)
[2016-10-19] MEDS: INSULIN ASPART [NOVOLOG] 3 ML PEN SC SCH ×2 (09:35→12:59)
[2016-10-19] MEDS ORDERED: LOPERAMIDE 2 MG CAP PO PRN (11:30)
[2016-10-19 14:50] VITALS: BP 137/66; RESP 18
[2016-10-19] MEDS ORDERED: HYDR-3498 PO (15:36)
--- NOTE | 2016-10-19 15:38 | DS ---
Date/Time of Note Date/Time of Note DATE: 10/19/16 TIME: 15:37 Discharge Summary Admission/Discharge Info Admit Date/Time Oct 16, 2016 at 10:37 Discharge Date/Time Patient Condition: Stable Hx of Present Illness The patient is a 56-year-old, White female, with a grade 2-3 endometrial cancer without evidence of metastatic disease. The patient also with history of diabetes mellitus, hypertension, and obesity. The patient was evaluated by Dr. Aguilar, at the patient was brought to the hospital and underwent a total laparoscopic hysterectomy with bilateral salpingo-oophorectomy, bilateral urethral dissection with repositioning, laparoscopic pelvic and aortic lymph node dissection, and retroperitoneal uterine artery ligation adjacent to the hypogastric artery. Postoperatively the patient experienced significant pain and patient is admitted for further evaluation and management. Hospital Course 1. Endometrial cancer, status post total laparoscopic hysterectomy with bilateral salpingo-oophorectomy, bilateral ureteral dissection was repositioning. Continue morphine for pain and Zofran p.r.n. for nausea. Continue IV fluids. Advance diet per Surgery. Continue Ellison catheter and monitor urinary output. 2. Diabetes mellitus type 2. Continue metformin. We will monitor fingerstick, NovoLog, and sliding scale coverage, and adequate glycemic control. 3. Hypertension. We will resume patient's home antihypertensive medication. 4. Continue sequential compression devices for deep venous thrombosis prophylaxis and Pepcid for peptic ulcer disease prophylaxis. Home Meds Reported Medications Atenolol* (Atenolol*) 50 Mg Tablet, 50 MG PO DAILY, #30 TAB 10/16/16 Metformin* (Glucophage*) 1,000 Mg Tablet, 1000 MG PO BID, #60 TAB 10/16/16 Discontinued Reported Medications Glipizide* (Glipizide*) 10 Mg Tablet, 10 MG PO BID, TAB 10/16/16 Follow-up Plan Follow-up with Dr. Aguilar in 1-2 weeks Primary Care Provider [facility] Pending Labs Laboratory Tests Test 10/18/16 16:18 10/18/16 17:36 10/18/16 20:59 10/19/16 01:04 Sodium Level 138mmol/L (135-144) Potassium Level 4.1mmol/L (3.5-5.1) Chloride Level 104mmol/L (97-110) Carbon Dioxide Level 27mmol/L (21-31) Anion Gap 11 (8-16) Blood Urea Nitrogen 14mg/dl (7-20) Creatinine 0.54mg/dl (0.44-1.00) Glucose Level 140mg/dl (70-220) Calcium Level 8.5mg/dl (8.4-10.2) Bedside Glucose 124mg/dL (70-220) 165mg/dL (70-220) 122mg/dL (70-220) Test 10/19/16 04:32 10/19/16 06:10 10/19/16 09:07 10/19/16 12:51 White Blood Count 10.710^3/ul (4.8-10.8) Red Blood Count 4.0510^6/ul (4.20-5.40) Hemoglobin 11.7g/dl (12.0-16.0) Hematocrit 32.6% (37.0-47.0) Mean Corpuscular Volume 80.5fl (82.0-101.0) Mean Corpuscular Hemoglobin 28.9pg (29.0-33.0) Mean Corpuscular Hemoglobin Concent 35.9g/dl (32.0-37.0) Red Cell Distribution Width 12.7% (11.5-14.5) Platelet Count 94857^3/UL (140-415) Mean Platelet Volume 10.8fl (7.4-10.4) Neutrophils % 44.5% (39.0-77.0) Lymphocytes % 42.0% (15.0-51.0) Monocytes % 10.6% (0.0-11.0) Eosinophils % 2.1% (0.0-7.0) Basophils % 0.5% (0.0-2.0) Nucleated Red Blood Cells % 0.0/100WBC (0.0-0.0) Neutrophils # (Manual) 510^3/ul (1.7-7.5) Lymphocytes # 4.510^3/ul (0.8-2.9) Monocytes # 1.110^3/ul (0.3-0.9) Eosinophils # 0.210^3/ul (0.0-0.5) Basophils # 0.110^3/ul (0.0-0.1) Nucleated Red Blood Cells # 0.010^3/ul (0.0-0.0) Sodium Level 142mmol/L (135-144) Potassium Level 4.0mmol/L (3.5-5.1) Chloride Level 102mmol/L (97-110) Carbon Dioxide Level 27mmol/L (21-31) Anion Gap 17 (8-16) Blood Urea Nitrogen 14mg/dl (7-20) Creatinine 0.48mg/dl (0.44-1.00) Glucose Level 135mg/dl (70-220) Calcium Level 8.6mg/dl (8.4-10.2) Total Bilirubin 0.3mg/dl (0.2-1.3) Direct Bilirubin 0.00mg/dl (0.00-0.20) Indirect Bilirubin 0.3mg/dl (0-1.1) Aspartate Amino Transf (AST/SGOT) 34IU/L (15-46) Alanine Aminotransferase (ALT/SGPT) 41IU/L (13-69) Alkaline Phosphatase 78IU/L (42-121) Total Protein 6.1g/dl (6.1-8.1) Albumin 3.1g/dl (3.3-4.9) Globulin 3.00g/dl (1.3-3.2) Albumin/Globulin Ratio 1.03 Lab Scanned Report REFERENCE [id number] Bedside Glucose 143mg/dL (70-220) 164mg/dL (70-220) Microbiology Date/Time Source Procedure Growth Status 10/18/16 19:30 Feces Clostridium difficile Toxin Assay - Final Complete ALEXA COATS Oct 19, 2016 15:38
== END 2016-10-19 16:35 | disposition home or self-care (01) | DRG 741 ==
LOC: REC 10:37 → MS1 20:03 → MS4 10-17 07:52 → MS1 10-17 09:02
PROC: 0UTC4ZZ Resection of Cervix, Percutaneous Endoscopic Approach (ICD-10-PCS; 2016-10-16)
PROC: 07BC4ZZ Excision of Pelvis Lymphatic, Percutaneous Endoscopic Approach (ICD-10-PCS; 2016-10-16)
PROC: 0UT74ZZ Resection of Bilateral Fallopian Tubes, Percutaneous Endoscopic Approach (ICD-10-PCS; 2016-10-16)
PROC: 0UT24ZZ Resection of Bilateral Ovaries, Percutaneous Endoscopic Approach (ICD-10-PCS; 2016-10-16)
PROC: 0TS84ZZ Reposition Bilateral Ureters, Percutaneous Endoscopic Approach (ICD-10-PCS; 2016-10-16)
PROC: 07BD4ZZ Excision of Aortic Lymphatic, Percutaneous Endoscopic Approach (ICD-10-PCS; 2016-10-16)
PROC: 0UT94ZZ Resection of Uterus, Percutaneous Endoscopic Approach (ICD-10-PCS; principal; 2016-10-16 12:30)
DX: C54.1 Malignant neoplasm of endometrium (principal); N13.5 Crossing vessel and stricture of ureter without hydronephrosis; I10 Essential (primary) hypertension; E11.9 Type 2 diabetes mellitus without complications; E66.9 Obesity, unspecified; Z68.34 Body mass index [BMI] 34.0-34.9, adult
CPT/HCPCS: 80048; 80053; 82962; 83036; 85025; 85610; 86850; 86900; 86901; 86920; 87075; 88104; 88305; 88307; 88331; J0690; J1170; J1644; J1815; J1885; J2175; J2250; J2270; J2274; J2405; J2765; J2795; J3010; J3480; J7120